=== PATIENT | female | born 2000 ===

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

== ENCOUNTER 2018-01-14 23:26 | Emergency (ER) | payer MEDICAID, OTHER ==
[2018-01-14 23:28] VITALS: BMI 35.2
[2018-01-14 23:51] VITALS: BP 123/82; PULSE 76; RESP 18; TEMP 98.5; O2SAT 100
--- NOTE | 2018-01-15 00:34 | C.PDOC ---
History Of Present Illness 17 year old female presents to the ED c/o periauricular pain radiating to the right facial area and right jaw that started today at 18:00. Patient states pain worsens with mouth movement. Patient denies injury, fall, trauma, fever, toothache, ear discharge. Time Seen by Provider: 01/14/18 23:54 Chief Complaint (Nursing): ENT Problem History Per: Patient History/Exam Limitations: no limitations Onset/Duration Of Symptoms: Days Current Symptoms Are (Timing): Still Present Associated Symptoms: denies: Fever, Nausea, Vomiting Recent travel outside of the [place]: No Additional History Per: Patient Abnormal Vaginal Bleeding: No Past Medical History Reviewed: Historical Data, Nursing Documentation, Vital Signs Vital Signs: Last Vital Signs Temp 98.5 F 01/14/18 23:49 Pulse 76 01/14/18 23:49 Resp 18 01/14/18 23:49 BP 123/82 01/14/18 23:49 Pulse Ox 100 01/15/18 00:35 - Medical History PMH: No Chronic Diseases Denies: Chronic Kidney Disease Surgical History: No Surg Hx Family History: States: Unknown Family Hx - Social History Hx Tobacco Use: No Hx Alcohol Use: No Hx Substance Use: No - Immunization History Hx Tetanus Toxoid Vaccination: No Hx Influenza Vaccination: No Hx Pneumococcal Vaccination: No Review Of Systems Constitutional: Negative for: Fever, Chills ENT: Positive for: Ear Pain, Mouth Pain. Negative for: Ear Discharge, Nose Discharge, Nose Congestion Cardiovascular: Negative for: Chest Pain Respiratory: Negative for: Cough, Shortness of Breath Skin: Negative for: Rash Neurological: Negative for: Weakness, Numbness, Headache Physical Exam - Physical Exam Appears: Non-toxic, No Acute Distress Skin: Normal Color, Warm, Dry Head: Atraumatic, Normacephalic, Tenderness (right TMJ area ) Eye(s): bilateral: Normal Inspection, PERRL, EOMI Ear(s): Right: Other (tenderness periauricular area), Bilateral: Normal Oral Mucosa: Moist Tongue: No Swelling Lips: No Swelling Teeth: No Tender To Palpation Gingiva: No Tender Throat: Normal, No Erythema, No Exudate Neck: Normal ROM, Supple Neurological/Psych: Oriented x3, Normal Speech Gait: Steady ED Course And Treatment O2 Sat by Pulse Oximetry: 100 (ON RA) Pulse Ox Interpretation: Normal Progress Note: On reassessment, patient is resting comfortably, and is in no acute distress. Patient was instructed to follow up with physician/clinic in 1- 2 days for further evaluation. Disposition Counseled Patient/Family Regarding: Diagnosis, Need For Followup, Rx Given - Disposition Referrals: [facility] [Outside] Laci Case MD [Staff Provider] - Disposition: HOME/ ROUTINE Disposition Time: 00:31 Condition: IMPROVED Additional Instructions: Take motrin as prescribed Follow up with ENT doctor - call for appointment Follow up with Dentist Return to ER if worse Prescriptions: Ibuprofen [Motrin] 600 mg PO Q6H #20 tab Instructions: Temporomandibular Joint (TMJ) Disorders (DC) Forms: [employer] (Finnish) - Clinical Impression Clinical Impression: Temporomandibular disorder - PA / 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 - Scribe Statement The provider has reviewed the documentation as recorded by the Scribe Donal Curtis All medical record entries made by the Scribe were at my direction and personally dictated by me. I have reviewed the chart and agree that the record accurately reflects my personal performance of the history, physical exam, medical decision making, and the department course for this patient. I have also personally directed, reviewed, and agree with the discharge instructions and disposition.
== END 2018-01-15 00:42 | disposition home or self-care (01) ==
LOC: C.ER 23:26
DX: M26.601 Right temporomandibular joint disorder, unspecified (principal)

== ENCOUNTER 2018-02-14 15:58 | Emergency (ER) | payer OTHER ==
[2018-02-14 15:58] VITALS: BMI 35.2
[2018-02-14 16:26] VITALS: BP 152/97; PULSE 73; RESP 18; TEMP 98.4; O2SAT 94
[2018-02-14] MEDS ORDERED: Apap-Butalbital-Caffeine 325-50-40mg Tab PO STA (17:39)
[2018-02-14] MEDS ORDERED: Naproxen 550 mg Tab PO STA (17:39)
[2018-02-14] MEDS ORDERED: Apap-Butalbital-Caffeine 325-50-40mg Tab ONE (17:49)
[2018-02-14] MEDS ORDERED: Naproxen 550 mg Tab PO ONE (17:49)
--- NOTE | 2018-02-14 18:32 | C.PDOC ---
History Of Present Illness 17 year old female presents to the ER with a complaint of intermittent headache for the past 2 days that worsens with walking and is associated with mild photophobia. Patient also reports having decreased urine output. Denies fever, chills, dysuria, hematuria, or abdominal pain. Time Seen by Provider: 02/14/18 17:19 Chief Complaint (Nursing): Headache History Per: Patient History/Exam Limitations: no limitations Onset/Duration Of Symptoms: Days, Intermittent Episodes Current Symptoms Are (Timing): Still Present Preceeding Symptoms: None Associated Symptoms: Photophobia (Mild). denies: Blurred Vision, Nausea, Vomiting, Extremity Weakness Recent travel outside of the [place]: No Past Medical History Reviewed: Historical Data, Nursing Documentation, Vital Signs Vital Signs: Last Vital Signs Temp 98.4 F 02/14/18 16:24 Pulse 73 02/14/18 16:24 Resp 18 02/14/18 16:24 BP 152/97 H 02/14/18 16:24 Pulse Ox 94 L 02/14/18 19:07 - Medical History PMH: Denies: Chronic Kidney Disease Family History: States: Unknown Family Hx - Social History Hx Tobacco Use: No Hx Alcohol Use: No Hx Substance Use: No - Immunization History Hx Tetanus Toxoid Vaccination: No Hx Influenza Vaccination: No Hx Pneumococcal Vaccination: No Review Of Systems Constitutional: Negative for: Fever, Chills Respiratory: Negative for: Cough Gastrointestinal: Negative for: Abdominal Pain Genitourinary: Positive for: Other (Decreased urine output). Negative for: Dysuria, Incontinence, Hematuria Musculoskeletal: Negative for: Neck Pain, Back Pain, Foot Pain Skin: Negative for: Rash Neurological: Positive for: Headache. Negative for: Weakness, Numbness Physical Exam - Physical Exam Appears: Non-toxic Skin: Normal Color, Warm, Dry, No Rash Head: Atraumatic, Normacephalic Eye(s): bilateral: Normal Inspection, PERRL, EOMI Oral Mucosa: Moist Throat: No Erythema, No Exudate Neck: Normal, Supple Chest: Symmetrical, No Tenderness Cardiovascular: Rhythm Regular, No Friction Rub, No Murmur Respiratory: Normal Breath Sounds, No Rales, No Rhonchi, No Wheezing Gastrointestinal/Abdominal: Bowel Sounds, Soft, No Tenderness, No Distention, No Guarding, No Rebound, No Hernia Back: No CVA Tenderness Extremity: Normal ROM, No Tenderness, No Pedal Edema, No Swelling Neurological/Psych: Oriented x3, Normal Speech, Normal Motor, Normal Sensation Gait: Steady ED Course And Treatment O2 Sat by Pulse Oximetry: 94 (Room air) Pulse Ox Interpretation: Normal Medical Decision Making Medical Decision Making: Fioricet and naproxen administered. Patient is able to urinate but did not collect the urine. Patient did not want to wait to give urine sample and is wanting to be discharged home. Patient reports improvement of symptoms, she is resting comfortably in the ER in no acute distress, vitals are stable, will discharge home with Rx and instructions to follow up with PMD. Disposition - Disposition Referrals: [facility] [Outside] Disposition: HOME/ ROUTINE Disposition Time: 18:30 Condition: STABLE Additional Instructions: Follow up with the medical doctor within 1-2 days. Return if worsened. Prescriptions: Acetaminophen/Butalbital/Caf [Fioricet] 1 tab PO TID PRN #20 tab PRN Reason: Headache Naproxen [Naprosyn] 500 mg PO BID #20 tab Instructions: Headache, Adult (DC) Forms: [employer] (Canadian) - Clinical Impression Clinical Impression: Headache - PA / ALTERATION WORKER / Resident Statement MD/DO has reviewed & agrees with the documentation as recorded. - Scribe Statement The provider has reviewed the documentation as recorded by the Scribsuhail White All medical record entries made by the Scribe were at my direction and personally dictated by me. I have reviewed the chart and agree that the record accurately reflects my personal performance of the history, physical exam, medical decision making, and the department course for this patient. I have also personally directed, reviewed, and agree with the discharge instructions and disposition.
== END 2018-02-14 18:48 | disposition home or self-care (01) ==
LOC: C.ER 15:58
DX: R51 Headache (principal)

== ENCOUNTER 2018-03-05 08:50 | Emergency (ER) | payer MEDICAID, OTHER ==
[2018-03-05 08:51] VITALS: BMI 35.2
--- NOTE | 2018-03-05 09:52 | C.PDOC ---
History Of Present Illness 17 years old female presents to ED for complaints of vaginal itch. Patient describes reports painful to touch and burning in urination. Denies fever, discharge, PMHx or any other physical complaints. Patient also reports first time experiencing symptoms. LMP 02/04/18. Patient states menstrual period is usually irregular. Time Seen by Provider: 03/05/18 09:19 Chief Complaint (Nursing): Female Genitourinary History Per: Patient History/Exam Limitations: no limitations Onset/Duration Of Symptoms: Hrs Current Symptoms Are (Timing): Still Present Alleviating Factors: None Recent travel outside of the [place]: No Abnormal Vaginal Bleeding: No Last Menstral Period: 02/04/18 Past Medical History Reviewed: Historical Data, Nursing Documentation, Vital Signs - Medical History PMH: No Chronic Diseases Surgical History: No Surg Hx Family History: States: Unknown Family Hx - Social History Hx Tobacco Use: No Hx Alcohol Use: No Hx Substance Use: No - Immunization History Hx Tetanus Toxoid Vaccination: No Hx Influenza Vaccination: No Hx Pneumococcal Vaccination: No Review Of Systems Except As Marked, All Systems Reviewed And Found Negative. Genitourinary: Positive for: Pelvic Pain Physical Exam - Physical Exam Appears: Non-toxic, No Acute Distress Skin: Normal Color, Warm, Dry, No Rash Head: Atraumatic, Normacephalic Eye(s): bilateral: Normal Inspection Oral Mucosa: Moist Neck: Supple Chest: Symmetrical, No Tenderness Cardiovascular: Rhythm Regular Respiratory: Normal Breath Sounds, No Rales, No Rhonchi, No Wheezing Gastrointestinal/Abdominal: Soft, No Tenderness Pelvic: Vaginal Discharge (whitish creamy), No Cervical Motion Tenderness, No Adnexal Tenderness, Other (no cervicitis) Extremity: Normal ROM, No Deformity Extremity: Bilateral: Atraumatic, Normal Color And Temperature, Normal ROM Neurological/Psych: Oriented x3, Normal Speech ED Course And Treatment Progress Note: Ordered Urinalysis. Ordered Diflucan po, d/c home. Disposition - Disposition Disposition: HOME/ ROUTINE Disposition Time: 11:14 Condition: STABLE Additional Instructions: Follow up within 1-2 days. Return to ED if feel worse. Prescriptions: Metronidazole [Metrogel-Vaginal] 1 ea VG QPM 7 Days #7 gel Instructions: Vaginitis Forms: [employer] (Lao) - Clinical Impression Clinical Impression: Vaginitis - PA / SOLAR SYSTEMS DESIGNER / Resident Statement /DO has reviewed & agrees with the documentation as recorded. - Scribe Statement The provider has reviewed the documentation as recorded by the Scribe Gypsy Camacho All medical record entries made by the Sayibsuhail were at my direction and personally dictated by me. I have reviewed the chart and agree that the record accurately reflects my personal performance of the history, physical exam, medical decision making, and the department course for this patient. I have also personally directed, reviewed, and agree with the discharge instructions and disposition.
[2018-03-05 10:30] LABS: HCG,QUALITATIVE URINE NEGATIVE (NEGATIVE)
[2018-03-05 10:36] LABS: SQUAMOUS EPITHIAL 8 /hpf (0-5); URINE BACTERIA RARE (<OCC); URINE BILIRUBIN NEGATIVE (NEGATIVE); URINE BLOOD 1+ (NEGATIVE); URINE CLARITY Hazy (Clear); URINE COLOR Yellow (YELLOW); URINE GLUCOSE (UA) NORMAL (Normal); URINE LEUKOCYTE ESTERASE 3+ Leu/uL (Negative); URINE PROTEIN NEGATIVE (NEGATIVE); URINE UROBILINOGEN NORMAL mg/dL (0.2-1.0)
[2018-03-05 10:50] VITALS: O2SAT 99
[2018-03-05 11:23] VITALS: BP 132/84; PULSE 74; RESP 20; TEMP 98.7
== END 2018-03-05 11:56 | disposition home or self-care (01) ==
LOC: C.ER 08:50
DX: N76.0 Acute vaginitis (principal)

== ENCOUNTER 2018-03-07 11:12 | Emergency (ER) | payer MEDICAID ==
[2018-03-07 11:12] VITALS: BMI 35.2
[2018-03-07 11:29] VITALS: O2SAT 100
--- NOTE | 2018-03-07 13:36 | C.PDOC ---
History Of Present Illness 17 y/o female presents to the ER complaining of vaginal itching which has been present for the past few days. Patient states that she was evaluated for same complaint in [place] 2 days ago. She was diagnosed with yeast infection and discharged with prescription for Metronidazole gel. Patient reports that she has been using the gel without improvement. Denies having abdominal pain, vaginal bleeding, and vaginal discharge. Time Seen by Provider: 03/07/18 12:27 Chief Complaint (Nursing): Female Genitourinary History Per: Patient History/Exam Limitations: no limitations Onset/Duration Of Symptoms: Days Current Symptoms Are (Timing): Still Present Severity: Moderate Past Medical History Reviewed: Historical Data, Nursing Documentation, Vital Signs Vital Signs: Last Vital Signs Temp 99.4 F 03/07/18 11:25 Pulse 96 H 03/07/18 11:25 Resp 22 03/07/18 11:25 BP 180/96 H 03/07/18 11:25 Pulse Ox 100 03/07/18 11:25 - Medical History PMH: No Chronic Diseases Denies: Chronic Kidney Disease Surgical History: No Surg Hx Family History: States: No Known Family Hx - Social History Hx Tobacco Use: No Hx Alcohol Use: No Hx Substance Use: No - Immunization History Hx Tetanus Toxoid Vaccination: No Hx Influenza Vaccination: No Hx Pneumococcal Vaccination: No Review Of Systems Except As Marked, All Systems Reviewed And Found Negative. Constitutional: Negative for: Fever, Chills Gastrointestinal: Negative for: Abdominal Pain Genitourinary: Positive for: Other (vaginal itching). Negative for: Vaginal Discharge, Vaginal Bleeding Physical Exam - Physical Exam Appears: Non-toxic, No Acute Distress Skin: Normal Color, Warm, Dry Head: Atraumatic, Normacephalic Eye(s): bilateral: Normal Inspection Nose: Normal Oral Mucosa: Moist Neck: Supple Chest: Symmetrical Cardiovascular: Rhythm Regular Respiratory: Normal Breath Sounds, No Rales, No Rhonchi, No Wheezing Gastrointestinal/Abdominal: Normal Exam, Soft, No Tenderness, No Guarding, No Rebound Pelvic: Normal Bimanual Exam, No Vaginal Bleeding, No Vaginal Discharge, No Cervical Motion Tenderness, No Adnexal Tenderness, Other (inflammed and erythematous external labia, 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 return if worsened. Prescriptions: Clotrimazole/Betamethasone [Lotrisone] 15 gm EXT BID #2 tube Fluconazole [Diflucan] 150 mg PO ONCE #2 tab Instructions: Vaginal Yeast Infection (DC) Forms: [employer] ([place]) - Clinical Impression Clinical Impression: Vulvovaginal candidiasis - PA / NETWORK ASSOCIATE / Resident Statement MD/DO has reviewed & agrees with the documentation as recorded. - Scribe Statement The provider has reviewed the documentation as recorded by the Sayibsuhail Davalos Provider Attestation All medical record entries made by the Scribe were at my direction and personally dictated by me. I have reviewed the chart and agree that the record accurately reflects my personal performance of the history, physical exam, medical decision making, and the department course for this patient. I have also personally directed, reviewed, and agree with the discharge instructions and disposition.
[2018-03-07 14:57] LABS: HCG,QUALITATIVE URINE NEGATIVE (NEGATIVE)
[2018-03-07 14:59] LABS: SQUAMOUS EPITHIAL 6 /hpf (0-5); URINE BACTERIA RARE (<OCC); URINE BILIRUBIN NEGATIVE (NEGATIVE); URINE BLOOD NEGATIVE (NEGATIVE); URINE CLARITY Hazy (Clear); URINE COLOR Yellow (YELLOW); URINE GLUCOSE (UA) NORMAL (Normal); URINE HYALINE CAST 0-2 /lpf (0-2); URINE LEUKOCYTE ESTERASE 1+ Leu/uL (Negative); URINE PROTEIN NEGATIVE (NEGATIVE)
[2018-03-07 15:11] VITALS: BP 118/77; PULSE 88; RESP 18; TEMP 98.9
== END 2018-03-07 16:14 | disposition home or self-care (01) ==
LOC: C.ER 11:12
DX: B37.3 Candidiasis of vulva and vagina (principal)

== ENCOUNTER 2018-07-17 23:17 | Emergency (ER) | payer OTHER ==
[2018-07-17 23:36] VITALS: BMI 43.0
[2018-07-17 23:42] VITALS: BP 121/78; PULSE 89; RESP 19; TEMP 97.8; O2SAT 99
--- NOTE | 2018-07-18 00:06 | C.PDOC ---
History Of Present Illness 17 year old female presents to the ER with left shoulder pain radiating down the left arm and fingers. Patient states occasionally her arm feels like " it's falling asleep and she need to shake it to regain sensation". She notes it worse when laying on her left side and the worsens with movement of the left shoulder. Denies trauma, weakness, or injury. Time Seen by Provider: 07/17/18 23:42 Chief Complaint (Nursing): Upper Extremity Problem/Injury History Per: Patient History/Exam Limitations: no limitations Onset/Duration Of Symptoms: Days, Intermittent Episodes Current Symptoms Are (Timing): Still Present Recent travel outside of the [place]: No Past Medical History Reviewed: Historical Data, Nursing Documentation, Vital Signs Vital Signs: Last Vital Signs Temp 97.8 F 07/17/18 23:36 Pulse 89 07/17/18 23:36 Resp 19 07/17/18 23:36 BP 121/78 07/17/18 23:36 Pulse Ox 99 07/17/18 23:36 - Medical History PMH: Denies: Chronic Kidney Disease Family History: States: Unknown Family Hx - Social History Hx Tobacco Use: No Hx Alcohol Use: No Hx Substance Use: No - Immunization History Hx Tetanus Toxoid Vaccination: No Hx Influenza Vaccination: No Hx Pneumococcal Vaccination: No Review Of Systems Musculoskeletal: Positive for: Arm Pain (Left) Neurological: Positive for: Other (Left arm falls asleep). Negative for: Weakness Physical Exam - Physical Exam Appears: Non-toxic, Other (Morbidly obese) Skin: Normal Color, Warm, Dry Head: Atraumatic, Normacephalic Eye(s): bilateral: Normal Inspection Extremity: Capillary Refill (<2 seconds), No Deformity, No Swelling, Other (Minimal left shoulder tenderness with ROM.) Pulses: Left Radial: Normal, Right Radial: Normal Neurological/Psych: Oriented x3, Normal Speech, Normal Motor, Normal Sensation ED Course And Treatment O2 Sat by Pulse Oximetry: 99 (Room air) Pulse Ox Interpretation: Normal Progress Note: Patient is resting comfortably in the ER in no acute distress, vitals are stable, Patient advised weight loss and exercise, advil for pain, and follow up with clinic. Disposition Counseled Patient/Family Regarding: Diagnosis, Need For Followup, Rx Given - Disposition Referrals: [facility] [Outside] Disposition: HOME/ ROUTINE Disposition Time: 00:04 Condition: STABLE Additional Instructions: Please follow up in clinic Take advil for pain Advise exercise and weight loss Return to ER if symptoms worsen Instructions: Shoulder Tendinopathy (DC), Paresthesias (DC) Forms: [employer] (Senegalese) - Clinical Impression Clinical Impression: Tendonitis of shoulder, Arm paresthesia, right - PA / PIER MASTER / Resident Statement MD/DO has reviewed & agrees with the documentation as recorded. - Scribe Statement The provider has reviewed the documentation as recorded by the Scribsuhail White All medical record entries made by the Angela were at my direction and personally dictated by me. I have reviewed the chart and agree that the record accurately reflects my personal performance of the history, physical exam, medical decision making, and the department course for this patient. I have also personally directed, reviewed, and agree with the discharge instructions and disposition.
== END 2018-07-18 00:16 | disposition home or self-care (01) ==
LOC: C.ER 23:17
DX: M75.92 Shoulder lesion, unspecified, left shoulder (principal); R20.2 Paresthesia of skin